=== PATIENT | male | born 1960 | race African-American/Black ===

== ENCOUNTER 2016-08-07 18:46 | Emergency (ER) | payer OTHER ==
[~2016-08-07] VITALS: Ht 182.9 cm; Wt 71.0 kg
[~2016-08-07 18:46] MED LIST: NO MEDS
[2016-08-07 18:51] VITALS: Ht 182.9 cm; Wt 71.0 kg
[2016-08-07] MEDS ORDERED: morphine 4 MG/ML VIAL IV STA (22:44)
[2016-08-07] MEDS ORDERED: ONDANSETRON 4 MG INJ IV STA (22:44)
[2016-08-07 22:58] LABS: BASOPHILS % 0.5 % (0.0-2.0); EOSINOPHILS # 0.2 10^3/ul (0.0-0.5); EOSINOPHILS % 3.4 % (0.0-7.0); HEMATOCRIT 44.3 % (42.0-52.0); LYMPHOCYTES # 1.7 10^3/ul (0.8-2.9); LYMPHOCYTES % 23.9 % (15.0-51.0); MEAN CORPUSCULAR HEMOGLOBIN 33.3 pg (29.0-33.0); MEAN CORPUSCULAR HGB CONC 33.9 g/dl (32.0-37.0); MEAN CORPUSCULAR VOLUME 98.3 fl (82.0-101.0); MEAN PLATELET VOLUME 7.6 fl (7.4-10.4); MONOCYTE # 0.9 10^3/ul (0.3-0.9); MONOCYTES % 12.2 % (0.0-11.0); NEUTROPHIL # 4.4 10^3/ul (1.6-7.5); PLATELET COUNT 210 10^3/UL (140-440); UNCORRECTED WBC 7.3 10^3/ul (4.8-10.8); WHITE BLOOD COUNT 7.3 10^3/ul (4.8-10.8)
[2016-08-07 23:00] LABS: INR 0.91; PARTIAL THROMBOPLASTIN TIME 24.7 Sec (25.0-35.0); PROTIME 12.3 Sec (12.2-14.2)
[2016-08-07 23:03] LABS: CONDITION 1
[2016-08-07 23:07] LABS: ALBUMIN 4.6 g/dl (3.3-4.9)
[2016-08-07 23:08] LABS: CHLORIDE 94 mmol/L (97-110); POTASSIUM 4.3 mmol/L (3.5-5.1); SODIUM 138 mmol/L (135-144)
[2016-08-07 23:10] LABS: ALBUMIN/GLOBULIN RATIO 1.12; ALKALINE PHOSPHATASE 87 IU/L (42-121); ANION GAP 17 (8-16); ASPARTATE AMINO TRANSFERASE 80 IU/L (15-46); BILIRUBIN,INDIRECT 0.8 mg/dl (0-1.1); BILIRUBIN,TOTAL 0.8 mg/dl (0.2-1.3); CARBON DIOXIDE 31 mmol/L (21-31); CREATININE 0.69 mg/dl (0.61-1.24); TOTAL PROTEIN 8.7 g/dl (6.1-8.1)
[2016-08-07 23:11] LABS: ALANINE AMINOTRANSFERASE 45 IU/L (13-69); BLOOD UREA NITROGEN 8 mg/dl (7-20); CALCIUM 9.5 mg/dl (8.4-10.2); GLUCOSE 82 mg/dl (70-220)
[2016-08-07 23:19] LABS: B-TYPE NATRIURETIC PEPTIDE 28 PG/ML (0-125)
--- NOTE | 2016-08-07 23:19 | RADRPT ---
PROCEDURE: XR Chest. CLINICAL INDICATION: Chest pain. TECHNIQUE: 2 frontal views of the chest. COMPARISON: None FINDINGS: The heart and mediastinum are within normal limits. The lungs are clear. Hyperinflation suggests a degree of COPD. Changes of centrolobular emphysema. There is no pleural effusion or pneumothorax. IMPRESSION: No acute disease. RPTAT: UU Physician Amadeo Date Time Electronically viewed and signed by Physician Amadeo on 08/07/2016 23:19 RS/
[2016-08-07 23:29] LABS: TROPONIN-I < 0.012 ng/ml (0.00-0.12)
[2016-08-07] MEDS ORDERED: LORA1TAB PO (23:41)
--- NOTE | 2016-08-07 23:41 | ERD ---
ER Documentation Chief Complaint Date/Time DATE: 08/07/16 TIME: 23:39 Chief Complaint chest pain w/ back pain x 6 months intermittent HPI This is a very pleasant 56-year-old male who comes in with complaints of chest pain and back pain that have been on and off for the past 6-8 months. Patient says it seems to be triggered by stress as he is going through emotional times given that he is not allowed to see his son. He denies any fevers or chills. Denies any nausea or vomiting. Pain is mild to moderate in intensity, cramping in nature and reproducible to touch and made worse by motion. ROS All systems reviewed and are negative except as per history of present illness. Medications Home Meds Discontinued Reported Medications [No Meds] No Conflict Check 11/20/13 Allergies Allergies: Coded Allergies: No Known Allergy (Unverified , 08/07/16) PMhx/Soc History of Surgery: Yes (L forearm repair after traumatic cut from glass) Anesthesia Reaction: No Hx Neurological Disorder: No Hx Respiratory Disorders: No Hx Cardiac Disorders: Yes (palpitations) Hx Psychiatric Problems: No Hx Alcohol Use: No Hx Substance Use: No Hx Tobacco Use: No Smoking Status: Never smoker Physical Exam Vitals Vital Signs Date Time Temp Pulse Resp B/P Pulse Ox O2 Delivery O2 Flow Rate FiO2 08/07/16 22:15 Nasal Cannula 2 08/07/16 18:51 97.4 86 20 144/89 97 Physical Exam Const: [] Head: Atraumatic Eyes: Normal Conjunctiva ENT: Normal External Ears, Nose and Mouth. Neck: Full range of motion..~ No meningismus. Resp: Clear to auscultation bilaterally Cardio: Regular rate and rhythm, no murmurs Abd: Soft, non tender, non distended. Normal bowel sounds Skin: No petechiae or rashes Back: No midline or flank tenderness Ext: No cyanosis, or edema Neur: Awake and alert Psych: Normal Mood and Affect Result Diagram: 08/07/16222908/07/162229 Results 24 hrs Laboratory Tests Test 08/07/16 22:30 Activated Partial Thromboplast Time 24.7Sec Alanine Aminotransferase (ALT/SGPT) 45IU/L Albumin 4.6g/dl Albumin/Globulin Ratio 1.12 Alkaline Phosphatase 87IU/L Anion Gap 17 Aspartate Amino Transf (AST/SGOT) 80IU/L B-Type Natriuretic Peptide 28PG/ML Basophils # 0.010^3/ul Basophils % 0.5% Blood Urea Nitrogen 8mg/dl Calcium Level 9.5mg/dl Carbon Dioxide Level 31mmol/L Chloride Level 94mmol/L Creatinine 0.69mg/dl Direct Bilirubin 0.00mg/dl Eosinophils # 0.210^3/ul Eosinophils % 3.4% Globulin 4.10g/dl Glucose Level 82mg/dl Hematocrit 44.3% Hemoglobin 15.0g/dl INR International Normalized Ratio 0.91 Indirect Bilirubin 0.8mg/dl Lymphocytes # 1.710^3/ul Lymphocytes % 23.9% Mean Corpuscular Hemoglobin 33.3pg Mean Corpuscular Hemoglobin Concent 33.9g/dl Mean Corpuscular Volume 98.3fl Mean Platelet Volume 7.6fl Monocytes # 0.910^3/ul Monocytes % 12.2% Neutrophils # 4.410^3/ul Neutrophils % 60.0% Nucleated Red Blood Cells # 0.010^3/ul Nucleated Red Blood Cells % 0.0/100WBC Platelet Count 67494^3/UL Potassium Level 4.3mmol/L Prothrombin Time 12.3Sec Prothrombin Time Ratio 1.0 Red Blood Count 4.5010^6/ul Red Cell Distribution Width 13.0% Sodium Level 138mmol/L Total Bilirubin 0.8mg/dl Total Protein 8.7g/dl Troponin I < 0.012ng/ml White Blood Count 7.310^3/ul Current Medications Medications (Trade) Dose Ordered Sig/Ojaquín Route PRN Reason Start Time Stop Time Status Last Admin Dose Admin Morphine Sulfate (morphine) 4 mg ONCE STAT IV 08/07/16 22:44 08/07/16 22:45 DC 08/07/16 23:04 Ondansetron HCl (Zofran Inj) 4 mg ONCE STAT IV 08/07/16 22:44 08/07/16 22:45 DC 08/07/16 23:03 Procedures/MDM EKG: Rate/Rhythm: Normal Sinus Rhythm QRS, ST, T-waves: No changes consistent w/ acute ischemia Impression: No evidence of ischemia or arrhythmia Chest X-ray 1V Interpreted by me: Soft Tissue: No acute abnormalities Bones: No acute abnormalities Mediastinum/Cardiac Silhouette/Lungs: No acute abnormalities Patient's thoracic symptoms have stabilized while in the department and are stable for outpatient follow up. Exam and work up not consistent w/ ischemia, arrhythmia, PE or dissection. Patient's symptomatology is most consistent with anxiety related atypical chest pain. He has no real risk factors for cardiac etiology. Patient has been stressed to follow up as an outpatient with cardiology for further evaluation, however at this point I do not see an emergent condition requiring admission. Patient will be discharged home with a torque is a Lorazepam. Follow-up immediately via 911 for any return of chest pain. Patient currently chest pain- free Departure Diagnosis: Primary Impression: Chest pain Chest pain type: unspecified Qualified Code: R07.9 - Chest pain, unspecified type Additional Impression: Anxiety Condition: Stable SRIDEVI VICENTE Aug 07, 2016 23:41
[2016-08-08 00:03] VITALS: BP 149/96; PULSE 70; RESP 18
== END 2016-08-08 00:04 | disposition home or self-care (01) ==
LOC: E/R 18:46
DX: R07.9 Chest pain, unspecified (principal); F41.9 Anxiety disorder, unspecified
CPT/HCPCS: 36415; 71010; 80053; 83880; 84484; 85025; 85610; 85730; 96374; 96375; J2270; J2405; Z7502; 93005

== ENCOUNTER 2016-12-15 13:24 | Emergency (ER) | payer OTHER ==
[~2016-12-15] VITALS: Ht 193 cm; Wt 68.0 kg
[~2016-12-15 13:24] MED LIST changes: +LORA1TAB PO
[2016-12-15 13:26] VITALS: Ht 193 cm; Wt 68.0 kg
--- NOTE | 2016-12-15 15:10 | RADRPT ---
PROCEDURE: XR Shoulder. CLINICAL INDICATION: Trauma TECHNIQUE: Three views of the right shoulder are available for review. COMPARISON: 11/20/2013 FINDINGS: The humeral head is located. Nonspecific fibrocystic changes seen at the greater tuberosity. Mild AC joint arthrosis. There is no acute osseous or articular abnormality. No evidence for fracture. Th e visualized portions of the right lung are clear . IMPRESSION: 1. No acute osseous abnormality. 2. Mild AC AC joint arthrosis. RPTAT: UU .Layo Diamond MD, MD Date Time Electronically viewed and signed by .Layo Diamond MD, MD on 12/15/2016 15:10 .d/
--- NOTE | 2016-12-15 15:11 | RADRPT ---
PROCEDURE: XR Wrist. CLINICAL INDICATION: Fall TECHNIQUE: AP, lateral and oblique views of the right wrist were performed. COMPARISON: 11/20/2013 FINDINGS: No evidence of fracture, dislocation, or subluxation is seen. The bones appear well mineralized. The re may be dorsal carpal bossing. Mild first CMC joint arthrosis. The soft tissues appear intact. IMPRESSION: 1. No acute osseous abnormality. RPTAT: UU .Layo Diamond MD, MD Date Time Electronically viewed and signed by .Layo Dimaond MD, on 12/15/2016 15:11 .d/
--- NOTE | 2016-12-15 15:12 | RADRPT ---
PROCEDURE: XR Hand. CLINICAL INDICATION: Status post fall TECHNIQUE: Three views of the right hand were obtained. COMPARISON: No prior studies are available for comparison. FINDINGS: There is no acute osseous or articular abnormality. No evidence for fracture. Bone mineral density is preserved. There is mild first CMC joint arthrosis. No radiopaque foreign body is seen. IMPRESSION: 1. No acute osseous abnormality. RPTAT: UU .Layo Diamond MD, MD Date Time Electronically viewed and signed by .Layo Diamond MD, MD on 12/15/2016 15:11 .d/
--- NOTE | 2016-12-15 20:43 | ERD ---
ER Documentation Chief Complaint Date/Time DATE: 12/15/16 TIME: 16:42 Chief Complaint RIGHT UPPER EXTREMITY INJURY HPI 56-year-old male right-handed patient with no significant past medical history presents to the ED complaining of a right upper extremity injury that occurred 3 days ago. Reports that there was an uneven asphalt and he was not looking and accidentally tripped and fell. States that he tried to catch his fall by placing his right hand onto the pavement and he hyperextended his right wrist and fingers. Reports that his right hand started to swell as well as his right shoulder. Denies any current pain. States that he presents to the ED today since he cannot extend his right wrist in the pronation position which started yesterday. Reports that when he supinates his hand he is able to slightly flex and extend his right hand. Reports that he was sleeping with his right arm extended however patient was not sleeping on any pillows under his right upper extremity. States that he also has bruising to the right humerus region. Denies any loss of sensation, fever, chills, weakness, numbness or tingling, nausea, vomiting. Denies any head or neck injuries. Denies any loss of consciousness. Denies any other injuries. ROS All systems reviewed and are negative except as per history of present illness. Medications Home Meds Active Scripts Lorazepam* (Lorazepam*) 1 Mg Tablet, 1 MG PO Q8H Y for ANXIETY, #10 TAB Prov:SRIDEVI VICENTETony 08/07/16 Allergies Allergies: Coded Allergies: No Known Allergy (Unverified , 08/07/16) PMhx/Soc History of Surgery: Yes (L forearm repair after traumatic cut from glass) Anesthesia Reaction: No Hx Neurological Disorder: No Hx Respiratory Disorders: No Hx Cardiac Disorders: Yes (palpitations) Hx Psychiatric Problems: No Hx Alcohol Use: No Hx Substance Use: No Hx Tobacco Use: No Physical Exam Vitals Vital Signs Date Time Temp Pulse Resp B/P Pulse Ox O2 Delivery O2 Flow Rate FiO2 12/15/16 13:26 98.0 93 18 156/93 98 Physical Exam Const: [id number], well-nourished. In no acute distress. Head: Atraumatic, normocephalic Eyes: Normal Conjunctiva without injection ENT: Normal external ear, nose and mouth. Neck: Full range of motion. No meningismus. Resp: Clear to auscultation bilaterally. No wheezing, rhonchi, rales, or crackles. No accessory muscle use. No retractions. Cardio: Regular rate and rhythm, no murmurs Skin: No petechiae or rashes Back: No midline tenderness. No CVA tenderness. Ext: No cyanosis, or edema. Cap refill less than 2 seconds. Distal pulses intact bilaterally. Ecchymosis noted on the medial aspect of patient's right humeral region. Slight tenderness palpation of the proximal upper humerus. Edema noted over the dorsal aspect of patient's right hand. Tenderness to palpation of the right metacarpal and carpal region. Wrist drop noted of the right upper extremity - was also unable to extend right thumb. Patient is able to flex and extend wrist in the supination position however is unable to do so in the pronation position. No warmth to touch. Non-erythematous. Full range of motion of the DIP, PIP, MCP joints. Full range of motion of the right elbow with flexion, extension, supination and pronation. Patient was able to flex, extend, internally and externally rotate his right shoulder. All other extremities have full range of motion. Neur: Awake and alert. Normal gait and coordination. Muscle strength 5/5. Sensation intact bilaterally. Psych: Normal Mood and Affect Procedures/MDM 56-year-old male patient with no significant past medical history presents the ED complaining of a right upper extremity injury. Patient is afebrile nontoxic appearing. Patient has normal vital signs. A right humerus, right shoulder, right wrist and right hand x-ray was ordered to further evaluate patient. Patient does not want any pain medications. PROCEDURE: XR Hand. CLINICAL INDICATION: Status post fall TECHNIQUE: Three views of the right hand were obtained. COMPARISON: No prior studies are available for comparison. FINDINGS: There is no acute osseous or articular abnormality. No evidence for fracture. Bone mineral density is preserved. There is mild first CMC joint arthrosis. No radiopaque foreign body is seen. IMPRESSION: 1. No acute osseous abnormality. PROCEDURE: XR Shoulder. CLINICAL INDICATION: Trauma TECHNIQUE: Three views of the right shoulder are available for review. COMPARISON: 11/20/2013 FINDINGS: The humeral head is located. Nonspecific fibrocystic changes seen at the greater tuberosity. Mild AC joint arthrosis. There is no acute osseous or articular abnormality. No evidence for fracture. The visualized portions of the right lung are clear . IMPRESSION: 1. No acute osseous abnormality. 2. Mild AC AC joint arthrosis. PROCEDURE: XR Wrist. CLINICAL INDICATION: Fall TECHNIQUE: AP, lateral and oblique views of the right wrist were performed. COMPARISON: 11/20/2013 FINDINGS: No evidence of fracture, dislocation, or subluxation is seen. The bones appear well mineralized. There may be dorsal carpal bossing. Mild first CMC joint arthrosis. The soft tissues appear intact. IMPRESSION: 1. No acute osseous abnormality. This case was discussed with my supervising physician, Dr. 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 Patient is placed in a volar splint. Splint Assessment: Neurovascularly intact pre and post splint placement with good fit. Patient's extremity symptoms have stabilized while they have been evaluated in the department and are appropriate for outpatient follow up. No evidence of fractures, dislocations, compartment syndrome, neurologic injury, vascular injury, open joint, open fracture, tendon laceration, septic arthritis, osteomyelitis, DVT, foreign body, or other emergent conditions. Dr. Barrera agreed with the management and discharge plan. This case has been signed out to my colleague, Isabela Angel PA-C pending the humerus x-ray. If patient has a humerus fracture, patient will be placed in a sling. If patient does not have a humerus fracture, patient will remain in a volar splint and strictly instructed to follow-up with neurology and orthopedic physicians. Follow up with primary care physician in 1-2 days for a referral to the orthopedic and neurology specialists for further evaluation and treatment. Instructed patient to return to the ED sooner for any worsening symptoms. Patient's questions were answered. Patient understood and agreed with discharge plan. Patient discharged stable. Departure Diagnosis: Primary Impression: Injury of upper extremity Encounter type: initial encounter Laterality: right Qualified Code: S49.91XA - Injury of upper extremity, right, initial encounter Condition: Stable Patient Instructions: Radial Nerve Palsy Referrals: MITRA ROJO MD, IRA CHUGH, DEEPAK K MD FANALE, CHRISTOPHER V. MD GOLDFINE,SARA KENNEDY MD,KAREN YA,PEGGY ALFARO,DAVIDNEENA CHAMPAGNE MD,JUAN F ROMAN,CHASITY ORDONEZ,LUÍS FRANK,ROBIN MENSAH M.D.,LUIS ZHONG,ANGELA WILLSON,BOBBY LEDBETTER,ODESSA HAGEN,IGNACIO CARPIO,OPAL GONZALEZ,SELVIN Skinner MD [facility] YOU HAVE RECEIVED A MEDICAL SCREENING EXAM AND THE RESULTS INDICATE THAT YOU DO NOT HAVE A CONDITION THAT REQUIRES URGENT TREATMENT IN THE EMERGENCY DEPARTMENT. FURTHER EVALUATION AND TREATMENT OF YOUR CONDITION CAN WAIT UNTIL YOU ARE SEEN IN YOUR DOCTORS OFFICE WITHIN THE NEXT 1-2 DAYS. IT IS YOUR RESPONSIBILITY TO MAKE AN APPOINTMENT FOR FOLOW-UP CARE. IF YOU HAVE A PRIMARY DOCTOR --you should call your primary doctor and schedule an appointment IF YOU DO NOT HAVE A PRIMARY DOCTOR YOU CAN CALL OUR PHYSICIAN REFERRAL HOTLINE AT IF YOU CAN NOT AFFORD TO SEE A PHYSICIAN YOU CAN CHOSE FROM THE FOLLOWING [facility] [address] [facility]. [facility] [address] [facility]. [facility] [address] [facility] [facility] [address] [facility] [address] [facility] [address] [facility]. [facility] YOU HAVE RECEIVED A MEDICAL SCREENING EXAM AND THE RESULTS INDICATE THAT YOU DO NOT HAVE A CONDITION THAT REQUIRES URGENT TREATMENT IN THE EMERGENCY DEPARTMENT. FURTHER EVALUATION AND TREATMENT OF YOUR CONDITION CAN WAIT UNTIL YOU ARE SEEN IN YOUR DOCTORS OFFICE WITHIN THE NEXT 1-2 DAYS. IT IS YOUR RESPONSIBILITY TO MAKE AN APPOINTMENT FOR FOLOW-UP CARE. IF YOU HAVE A PRIMARY DOCTOR --you should call your primary doctor and schedule and appointment IF YOU DO NOT HAVE A PRIMARY DOCTOR YOU CAN CALL OUR PHYSICIAN REFERRAL HOTLINE AT . IF YOU CAN NOT AFFORD TO SEE A PHYSICIAN YOU CAN CHOSE FROM THE FOLLOWING [facility] [address] [place] [address] [facility] [address] [place] [address] [facility] [address] [place] [address] [facility] 7 a.m.- 11 p.m. Every Day of the Week NO APPOINTMENT OR AUTHORIZATION NEEDED [facility] Hours: Mon-Fri 9:00 AM - 5:00 PM Additional Instructions: Call your primary care doctor TOMORROW for an appointment during the next 2 days for a referral to orthopedic physician and neurologist. See the doctor sooner or return here if your condition worsens before your appointment time. VAZQUEZ VERA PA-C Dec 15, 2016 16:53
--- NOTE | 2016-12-15 20:45 | EN ---
Date/Time of Note Date/Time of Note DATE: 12/15/16 TIME: 18:16 ER Progress Note This patient was signed out to me by Nelli Antunez PA-C pending results of humerus x -rays per the radiology report images of the right humerus were negative. There is no acute fracture dislocation. Patient was placed in a volar splint. Patient was given discharge paperwork for information on radial nerve palsy and instructions for follow-up with primary care physician for referral to lawn specialist and neurology. This was explained to the patient. At this time the patient is stable for discharge and outpatient management. Patient should follow up with their PCP in the next 1-2 days. They may return to the emergency department sooner for any persistent or worsening of symptoms. Patient understood and agreed with the plan. JEANINE DE LA TORRE PA-C Dec 15, 2016 18:18
--- NOTE | 2016-12-20 18:52 | RADRPT ---
PROCEDURE: XR Humerus. CLINICAL INDICATION: Right arm pain and bruising. TECHNIQUE: AP and lateral views of the right humerus were performed. COMPARISON: None. FINDINGS: The osseous structures are intact. No destructive bony lesions are identified. Interosseous spaces appear unremarkable. The soft tissues surrounding the humerus appear normal. IMPRESSION: No visualized traumatic injury. If there is high clinical suspicion for traumatic injury, further evaluation with CT should be consi dered. RPTAT: AA .Frederick Camacho MD, MD Date Time Electronically viewed and signed by .Frederick Camacho MD, on 12/15/2016 16:25 .P/
== END 2016-12-15 19:33 | disposition home or self-care (01) ==
LOC: FTE 13:24
DX: S49.91XA Unspecified injury of right shoulder and upper arm, initial encounter (principal); W01.0XXA Fall on same level from slipping, tripping and stumbling without subsequent striking against object, initial encounter; Y92.9 Unspecified place or not applicable
CPT/HCPCS: 73030; 73060; 73110; 73130; Z7502

== ENCOUNTER 2017-01-25 12:36 | Emergency (ER) | payer OTHER ==
[~2017-01-25] VITALS: Wt 80.0 kg
[~2017-01-25 12:36] MED LIST changes: -NO MEDS
[2017-01-25] MEDS ORDERED: NITROGLYCERIN 2% 1 GM OINT PKT TD STA (12:47)
[2017-01-25] MEDS ORDERED: ASPIRIN 81 MG TAB PO STA (12:47)
[2017-01-25] MEDS ORDERED: NITROGLYCERIN (SL) 0.4 MG TAB SL PRN (13:00)
[2017-01-25 13:07] LABS: BASOPHILS % 0.5 % (0.0-2.0); EOSINOPHILS # 0.2 10^3/ul (0.0-0.5); EOSINOPHILS % 2.8 % (0.0-7.0); HEMATOCRIT 39.7 % (42.0-52.0); HEMOGLOBIN 14.1 g/dl (14.0-18.0); LYMPHOCYTES # 1.8 10^3/ul (0.8-2.9); LYMPHOCYTES % 31.8 % (15.0-51.0); MEAN CORPUSCULAR HEMOGLOBIN 33.8 pg (29.0-33.0); MEAN CORPUSCULAR HGB CONC 35.5 g/dl (32.0-37.0); MEAN CORPUSCULAR VOLUME 95.2 fl (82.0-101.0); MEAN PLATELET VOLUME 8.9 fl (7.4-10.4); MONOCYTE # 0.7 10^3/ul (0.3-0.9); MONOCYTES % 11.8 % (0.0-11.0); NEUTROPHILS % 52.9 % (39.0-77.0); PLATELET COUNT 193 10^3/UL (140-415); RED BLOOD COUNT 4.17 10^6/ul (4.70-6.10); RED CELL DISTRIBUTION WIDTH 12.7 % (11.5-14.5); WHITE BLOOD COUNT 5.8 10^3/ul (4.8-10.8)
[2017-01-25 13:22] LABS: INR 0.91; PROTIME 12.2 Sec (12.2-14.2)
[2017-01-25 13:23] LABS: PARTIAL THROMBOPLASTIN TIME 24.4 Sec (25.0-35.0)
[2017-01-25 13:25] LABS: ANION GAP 19 (8-16); BLOOD UREA NITROGEN 6 mg/dl (7-20); CALCIUM 9.1 mg/dl (8.4-10.2); CARBON DIOXIDE 25 mmol/L (21-31); CHLORIDE 101 mmol/L (97-110); CREATININE 0.68 mg/dl (0.61-1.24); GLUCOSE 101 mg/dl (70-220); POTASSIUM 4.1 mmol/L (3.5-5.1); SODIUM 141 mmol/L (135-144)
[2017-01-25 13:42] LABS: TROPONIN-I < 0.012 ng/ml (0.00-0.12)
--- NOTE | 2017-01-25 14:39 | RADRPT ---
PROCEDURE: XR Chest. CLINICAL INDICATION: Chest pain. TECHNIQUE: Single frontal view. COMPARISON: 08/07/2016. FINDINGS: The lungs are hyperinflated but otherwise clear. The heart size is normal. There is no pleural effusion. There is no pneumothorax. IMPRESSION: 1. Hyperinflated lungs. 2. Otherwise normal chest x-ray. RPTAT: QQ .Juan Alberto Zapata MD, MD Date Time Electronically viewed and signed by .Juan Alberto Zapata MD, MD on 01/25/2017 14:38 .R/
--- NOTE | 2017-01-25 16:13 | RADRPT ---
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 Physician: JOSE ALEJANDRO UNGER Quality: Good Procedures: Transthoracic echocardiogram with complete 2D, M-Mode, and doppler examination. Indications: Evaluate Left Ventricular function. Chest Pain. 2D/M Mode Doppler Measurement Value Normal Ranges Measurement Value Normal Ranges LVIDd 2D 4.3 3.5 - 5.6 cm AV Peak Rasheed 1.3 m/sec LVIDs 2D 2.6 2.1 - 4.1 cm AV Peak PG 7.0 mmHg FS 2D 39.3 % LVOT Peak Rasheed 1.0 m/sec LVPWd 2D 0.9 0.6 - 1.1 cm LVOT Peak PG 4.0 mmHg IVSd 2D 0.9 0.6 - 1.1 cm MV E Peak Rasheed 0.7 m/sec IVS/LVPW 2D 1.0 MV A Peak Rasheed 0.7 m/sec AoR Diam 2D 3.3 2.0 - 3.7 cm MV E/A 1.1 LA/Ao 2D 1 0 - 1 MV Decel Time 327 msec EDV 2D 82.3 cm3 MV E/A 1.1 ESV 2D 18.4 cm3 TR Peak Rasheed 2.1 m/sec LA Dimen 2D 2.8 2.3 - 4.0 cm TR Peak PG 20.0 mmHg RVSP 23.0 mmHg Findings Left Ventricle: Normal left ventricular systolic function. Normal left ventricular cavity size. Normal left ventricular wall thickness. Ejection fraction is visually estimated at 55 %. Tissue Doppler/Mitral Doppler indices are consistent with impaired relaxation (Stage I diastolic dysfunction). Right Ventricle: Normal right ventricular size. Normal right ventricular systolic function. Left Atrium: The left atrium is normal in size. Right Atrium: The right atrium is normal in size. Mitral Valve: Normal appearance and function of the mitral valve with trace physiologic regurgitation. Aortic Valve: No significant aortic stenosis or insufficiency. Aortic cusps appear mildly calcified. Tricuspid Valve: Normal appearance and function of the tricuspid valve with trace physiologic regurgitation. Pulmonic Valve: Pulmonic valve not well visualized. Pericardium: Normal pericardium with no significant pericardial effusion. Aorta: Normal aortic root. IVC: Normal size and normal respiratory collapse consistent with normal right atrial pressure. Conclusions Normal left ventricular systolic function. Normal left ventricular cavity size. Normal left ventricular wall thickness. Ejection fraction is visually estimated at 55 %. Tissue Doppler/Mitral Doppler indices are consistent with impaired relaxation (Stage I diastolic dysfunction). Normal right ventricular size. Normal right ventricular systolic function. The left atrium is normal in size. The right atrium is normal in size. No significant valvular stenosis or regurgitation seen. Normal pericardium with no significant pericardial effusion. Electronically Signed By: Jose Alejandro Unger 25-Jan-2017 16:13:02 -0700 Patient Name: JOSE ALEJANDRO MISHRA Study Date: 25-Jan-2017 [id number]
--- NOTE | 2017-01-25 16:20 | CONS ---
Date/Time of Note Date/Time of Note DATE: 01/25/17 TIME: 16:13 Assessment/Plan Assessment/Plan Additional Assessment/Plan Chest pain Preserved ejection Illicit drug use -Patient's discomfort is exacerbated with positions and smoking marijuana. Denies exertional component to symptoms. Denies pain radiating to the back but points more to the mid chest and left pectoral region. At the current time he is asymptomatic. Initial cardiac enzymes are negative, ECG without any significant ischemic abnormalities, echocardiogram with preserved ejection fraction. Given the atypical nature of his symptoms, if serial cardiac enzymes remain negative, no further inpatient cardiac workup needed at the current time. Consultation Date/Type/Reason Admit Date/Time Type of Consultation: cv Reason for Consultation Chest pain Hx of Present Illness This is a 56-year-old male with no significant past medical history presents with chest pain. Pain is sharp in nature and began this morning. Patient does admit to marijuana smoking, and did say after smoking, he developed increased left-sided chest discomfort. Pain is sharp in nature, worse with leaning forward and leaning on left side. Left arm movements does also exacerbate discomfort. Patient does get intermittent symptoms like this more so with smoking marijuana. He denies exertional chest pain or shortness of breath. He denies palpitations or dizziness. He denies cough, fevers or chills. 12 point review of systems was performed with all pertinent positives and negatives mentioned above and all else is negative Past Medical History Medical History: no pertinent history Past Surgical History Past Surgical Hx: other (Arm surgery) Family History Significant Family History: no pertinent family hx Social History Alcohol Use: other (Minimum of 4 beers a day) Smoking Status: Current every day smoker Drug Use: marijuana, other (Occasional crack use, last episode approximately 3 days ago) Exam/Review of Systems Vital Signs Vitals Vital Signs Date Time Temp Pulse Resp B/P Pulse Ox O2 Delivery O2 Flow Rate FiO2 01/25/17 13:00 Nasal Cannula 2 01/25/17 12:38 98.0 89 18 175/86 99 Exam No apparent distress Constitutional: alert, oriented Head: normocephalic Respiratory: clear to auscultation, normal air movement Cardiovascular: other (S1-S2 heard, no murmurs appreciated), regular rate and rhythm Gastrointestinal: bowel sounds, non-tender, other (No guarding), soft Musculoskeletal: other (Pain with palpation chest wall) Extremities: other (No edema) Results Result Diagram: 01/25/17 1247 01/25/17 1247 Results 24 hrs Laboratory Tests Test 01/25/17 12:47 White Blood Count 5.8 # Red Blood Count 4.17 L Hemoglobin 14.1 Hematocrit 39.7 L Mean Corpuscular Volume 95.2 Mean Corpuscular Hemoglobin 33.8 H Mean Corpuscular Hemoglobin Concent 35.5 Red Cell Distribution Width 12.7 Platelet Count 193 Mean Platelet Volume 8.9 Neutrophils % 52.9 Lymphocytes % 31.8 Monocytes % 11.8 H Eosinophils % 2.8 Basophils % 0.5 Nucleated Red Blood Cells % 0.0 Neutrophils # 3.0 Lymphocytes # 1.8 Monocytes # 0.7 Eosinophils # 0.2 Basophils # 0.0 Nucleated Red Blood Cells # 0.0 Prothrombin Time 12.2 Prothrombin Time Ratio 1.0 INR International Normalized Ratio 0.91 Activated Partial Thromboplast Time 24.4 L Sodium Level 141 Potassium Level 4.1 Chloride Level 101 Carbon Dioxide Level 25 Anion Gap 19 H Blood Urea Nitrogen 6 L Creatinine 0.68 Glucose Level 101 Calcium Level 9.1 Troponin I < 0.012 Procedures Procedures ECG demonstrates sinus rhythm at 74 bpm, QRS 86 ms, nonspecific T-wave abnormalities Jose Alejandro Newton DO Jan 25, 2017 16:20
[2017-01-25 17:24] LABS: CREATINE KINASE 91 IU/L (23-200)
[2017-01-25 17:37] LABS: CK-MB 0.85 ng/ml (0.0-2.4); TROPONIN-I < 0.012 ng/ml (0.00-0.12)
[2017-01-25 17:47] VITALS: BP 121/71; PULSE 76; RESP 20
[2017-01-25] MEDS ORDERED: IBUP-1542 PO (17:59)
--- NOTE | 2017-01-25 18:58 | ERD ---
ER Documentation Chief Complaint Date/Time DATE: 01/25/17 TIME: 18:51 Chief Complaint CHEST PAIN SINCE THIS AM HPI Patient is a 56-year-old male with no medical problems who presents with chest pain. The patient has left-sided chest pain. He said that he woke up with a 10 minutes prior to arrival. The patient said it was sudden onset and sharp in nature. It was constant. He has had no treatment as of yet. He has shortness of breath but no cough. Upon review of old medical records this is the patient' s fourth visit to the ER since 2013. He does admit to marijuana and cocaine use. ROS All systems reviewed and are negative except as per history of present illness. Medications Home Meds Active Scripts Ibuprofen* (Motrin*) 600 Mg Tab, 600 MG PO Q8, #30 TAB Prov:MANNIE WILLS MD 01/25/17 Discontinued Scripts Lorazepam* (Lorazepam*) 1 Mg Tablet, 1 MG PO Q8H Y for ANXIETY, #10 TAB Prov:SRIDEVI VICENTE 08/07/16 Allergies Allergies: Coded Allergies: No Known Allergy (Unverified , 01/25/17) PMhx/Soc History of Surgery: Yes (L forearm repair after traumatic cut from glass) Anesthesia Reaction: No Hx Neurological Disorder: No Hx Respiratory Disorders: No Hx Cardiac Disorders: Yes (palpitations) Hx Psychiatric Problems: No Hx Alcohol Use: Yes Hx Substance Use: No Hx Tobacco Use: No Smoking Status: Current every day smoker FmHx Family History: coronary disease Physical Exam Vitals Vital Signs Date Time Temp Pulse Resp B/P Pulse Ox O2 Delivery O2 Flow Rate FiO2 01/25/17 17:47 76 20 121/71 99 Room Air 01/25/17 17:00 72 18 155/89 99 Room Air 01/25/17 15:00 70 20 133/93 99 Room Air 01/25/17 13:00 Nasal Cannula 2 01/25/17 12:38 98.0 89 18 175/86 99 Physical Exam Const: Moderate distress secondary to pain Head: Atraumatic Eyes: Normal Conjunctiva ENT: Normal External Ears, Nose and Mouth. Neck: Full range of motion..~ No meningismus. Resp: Clear to auscultation bilaterally Cardio: Regular rate and rhythm, no murmurs Abd: Soft, non tender, non distended. Normal bowel sounds Skin: No petechiae or rashes Back: No midline or flank tenderness Ext: No cyanosis, or edema Neur: Awake and alert Psych: Normal Mood and Affect Result Diagram: 01/25/17 1247 01/25/17 1247 Results 24 hrs Laboratory Tests Test 01/25/17 12:47 01/25/17 16:50 White Blood Count 5.810^3/ul Red Blood Count 4.1710^6/ul Hemoglobin 14.1g/dl Hematocrit 39.7% Mean Corpuscular Volume 95.2fl Mean Corpuscular Hemoglobin 33.8pg Mean Corpuscular Hemoglobin Concent 35.5g/dl Red Cell Distribution Width 12.7% Platelet Count 63139^3/UL Mean Platelet Volume 8.9fl Neutrophils % 52.9% Lymphocytes % 31.8% Monocytes % 11.8% Eosinophils % 2.8% Basophils % 0.5% Nucleated Red Blood Cells % 0.0/100WBC Neutrophils # 3.010^3/ul Lymphocytes # 1.810^3/ul Monocytes # 0.710^3/ul Eosinophils # 0.210^3/ul Basophils # 0.010^3/ul Nucleated Red Blood Cells # 0.010^3/ul Prothrombin Time 12.2Sec Prothrombin Time Ratio 1.0 INR International Normalized Ratio 0.91 Activated Partial Thromboplast Time 24.4Sec Sodium Level 141mmol/L Potassium Level 4.1mmol/L Chloride Level 101mmol/L Carbon Dioxide Level 25mmol/L Anion Gap 19 Blood Urea Nitrogen 6mg/dl Creatinine 0.68mg/dl Glucose Level 101mg/dl Calcium Level 9.1mg/dl Troponin I < 0.012ng/ml < 0.012ng/ml Creatine Kinase 91IU/L Creatine Kinase Index 0.9 Creatinine Kinase MB (Mass) 0.85ng/ml Current Medications Medications (Trade) Dose Ordered Sig/Joaquín Route PRN Reason Start Time Stop Time Status Last Admin Dose Admin Aspirin (Aspirin) 162 mg ONCE STAT PO 01/25/17 12:47 01/25/17 12:50 DC 01/25/17 13:40 Nitroglycerin (Nitroglycerin 2% Oint) 1 inch ONCE STAT TD 01/25/17 12:47 01/25/17 12:50 DC 01/25/17 13:41 Nitroglycerin (Nitroglycerin (Sl Tab) 0.4 Mg) 1 tab Q5M UP TO 3 DOSES PRN SL CHEST PAIN 01/25/17 13:00 01/25/17 18:05 DC 01/25/17 13:40 Procedures/MDM EKG #1 read by me: Rate/Rhythm: Regular rate and rhythm at a normal rate Intervals: Normal Impression: ST elevation in V2 but no contiguous ST elevation and no reciprocal depressions EKG #2 read by me: Rate/Rhythm: Regular rate and rhythm at a normal rate Intervals: Normal Impression: ST elevation in V2 but no contiguous ST elevation and no reciprocal depressions Chest x-ray shows no pneumonia or pneumothorax per radiology. Patient is a 56-year-old male with no medical problems who presents with chest pain. He had 2 EKGs which were similar to each other. He was given aspirin nitroglycerin empirically. I spoke with Dr. Hernandez and then I spoke with the river guide Dr. Espinosa who came to the bedside to evaluate the patient. He said that he felt that if the second set of cardiac markers were negative the patient can be discharged. Repeat cardiac markers 4 hours after the first were done and were negative as well. The patient will be discharged as he does feel better. He can follow-up with his primary doctor within 24-48 hours. He can return for any worsening symptoms. Observation Note: Time: 4 hours Family Hx: Positive for coronary disease Evaluation: Multiple exams showed improving symptoms and no evidence of clinical decompensation. Departure Diagnosis: Primary Impression: Chest pain Chest pain type: unspecified Qualified Code: R07.9 - Chest pain, unspecified type Condition: Fair Patient Instructions: Chest Pain, Uncertain Cause Referrals: Your doctor Additional Instructions: Call your primary care doctor TOMORROW for an appointment during the next 1-2 days.See the doctor sooner or return here if your condition worsens before your appointment time. MANNIE WILLS MD Jan 25, 2017 18:58
== END 2017-01-25 18:04 | disposition home or self-care (01) ==
LOC: E/R 12:36
DX: R07.9 Chest pain, unspecified (principal); R40.2142 Coma scale, eyes open, spontaneous, at arrival to emergency department; R40.2252 Coma scale, best verbal response, oriented, at arrival to emergency department; R40.2362 Coma scale, best motor response, obeys commands, at arrival to emergency department; F17.210 Nicotine dependence, cigarettes, uncomplicated
CPT/HCPCS: 71010; 80048; 82550; 82553; 84484; 85025; 85610; 85730; 93005; 93306; Z7610; 36415